=== PATIENT | male | born 1940 | race Caucasian/White ===

== ENCOUNTER 2016-12-30 10:03 | Day surgery (SDC) | payer MEDICARE ==
[2016-12-30] VITALS (8 sets, daily range): BP systolic 116–156; BP diastolic 47–78; PULSE 62–96; RESP 16–20; TEMP 97.6–97.9; O2SAT 92–98
[~2016-12-30] VITALS: Ht 170.2 cm; Wt 97.7 kg
[2016-12-30] MEDS ORDERED: GLIP10TA6 PO (10:49)
[2016-12-30] MEDS ORDERED: METF1000 PO (10:50)
[2016-12-30] MEDS ORDERED: LISI2.5T3 PO (10:51)
[2016-12-30] MEDS ORDERED: NOVORP2 SQ (10:52)
[2016-12-30] MEDS ORDERED: FLUT50SP EACH NARE (10:53)
[2016-12-30] MEDS ORDERED: VITA100064 PO (10:54)
[2016-12-30] MEDS ORDERED: VITA400C2 PO (10:55)
[2016-12-30] MEDS ORDERED: SODIUM CHLOR 0.9% 1000 ML IV SCH (11:00)
[2016-12-30 11:10] LABS: AUTOMATED NEUTROPHIL # 1.7 TH/MM3 (1.8-7.7); BASOPHIL # 0.1 TH/MM3 (0-0.2); BASOPHIL % 1.1 % (0.0-2.0); EOSINOPHIL # 0.2 TH/MM3 (0-0.4); EOSINOPHIL % 3.8 % (0.0-4.0); HEMATOCRIT 41.9 % (39.0-51.0); HEMO FLAGS DIFF FINAL; LYMPH % 56.2 % (9.0-44.0); LYMPHOCYTE # 3.2 TH/MM3 (1.0-4.8); MEAN CELL VOLUME 95.1 FL (80.0-100.0); MEAN CORPUSCULAR HEMOGLOBIN 32.5 PG (27.0-34.0); MEAN CORPUSCULAR HGB CONC 34.2 % (32.0-36.0); MONO % 8.3 % (0.0-8.0); NEUT % 30.6 % (16.0-70.0); PLATELET COUNT 194 TH/MM3 (150-450); RED BLOOD COUNT 4.41 MIL/MM3 (4.50-5.90); RED CELL DISTRIBUTION WIDTH 14.1 % (11.6-17.2); WHITE BLOOD COUNT 5.7 TH/MM3 (4.0-11.0)
[2016-12-30 11:18] LABS: PROTHROMBIN TIME - PATIENT 11.4 SEC (9.8-11.6)
[2016-12-30] MEDS ORDERED: LIDOCAINE 1%/EPINEPHrine 1:100,000 SOLN 20 ML VIAL ONE (11:58)
[2016-12-30] MEDS ORDERED: fentaNYL CITRATE 250 MCG/5 ML AMP ONE (12:12)
[2016-12-30] MEDS ORDERED: MIDAZOLAM HCL 5 MG/5 ML VIAL ONE (12:12)
--- NOTE | 2016-12-30 13:25 | RADRPT ---
EXAM DATE/TIME: 12/30/2016 12:32 [place] COMPARISON: No previous studies available for comparison. INDICATIONS : Elevated liver function tests. 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 fatty liver SURGICAL HISTORY : Cholecystectomy ENCOUNTER: Initial ACUITY: 1 day PAIN SCORE: 0/10 LOCATION: Right lobe of the liver A total of one core specimen(s) were obtained and sent to the laboratory for pathologic evaluation. PROCEDURE: 1. CT guided liver biopsy. 2. Conscious sedation with continuous EKG and oximetry monitoring. 3. EKG and oximetry remained stable throughout the procedure. Prior to the procedure informed consent was obtained. Any appropriate prior imaging studies were rev iewed. Using automated exposure control and adjustment of the mA and/or kV according to patient size, radiat ion dose was kept as low as reasonably achievable to obtain optimal diagnostic quality images. The site was prepped in a sterile fashion. Full sterile technique was used, including cap, mask, alejandra rile gloves and gown and a large sterile sheet. Hand hygiene and 2% chlorhexidine and/or betadine/al cohol prep was utilized per protocol for cutaneous antisepsis. The skin and subcutaneous tissues wer e infiltrated with local anesthetic solution. With CT guidance the previously identified target was localized. Biopsy was performed using the presc ribed needle as above. Adequate hemostasis was obtained with compression at the puncture site. Follow-up CT scan reveals no hemorrhage. The patient tolerated the procedure well and there were no complications. The patient was returned to the Radiology Outpatient Unit in stable condition. CONCLUSION: Uncomplicated CT guided biopsy. Kameron Woods MD on December 30, 2016 at 13:22 Board Certified Radiologist. This report was verified electronically.
== END 2016-12-30 16:52 | disposition home or self-care (01) ==
LOC: HRAD 10:03 → HRIP 10:08 → HRAD 16:52
PROVIDERS: ATTEND Hospitalist
DX: B18.1 Chronic viral hepatitis B without delta-agent (principal); K76.0 Fatty (change of) liver, not elsewhere classified; Z90.49 Acquired absence of other specified parts of digestive tract
CPT/HCPCS: 47000; 77012; 85025; 85610; 85730; 88307; 88313; 88341; 88342; J2250; J3010; J7030